=== PATIENT | female | born 1945 | race Caucasian/White ===

== ENCOUNTER → 2018-01-28 | Outpatient (CLI) | payer MEDICARE | END | disposition home or self-care (01) | LOC: CFH 09:07 | PROVIDERS: ATTEND Internal Medicine | DX: R06.02 Shortness of breath (principal); R07.89 Other chest pain | CPT/HCPCS: 71046 ==

== ENCOUNTER → 2018-08-01 | Outpatient (CLI) | payer MEDICARE | END | disposition home or self-care (01) | LOC: CFH 11:14 | PROVIDERS: ATTEND Internal Medicine | DX: Z12.31 Encounter for screening mammogram for malignant neoplasm of breast (principal) | CPT/HCPCS: 77063; 77067 ==

== ENCOUNTER → 2019-02-18 | Outpatient (CLI) | payer MEDICARE | END | disposition home or self-care (01) | LOC: CFH 15:39 | PROVIDERS: ATTEND Internal Medicine | DX: R09.89 Other specified symptoms and signs involving the circulatory and respiratory systems (principal); R55 Syncope and collapse | CPT/HCPCS: 70450 ==

== ENCOUNTER → 2019-04-16 | Outpatient (CLI) | payer MEDICARE | END | disposition home or self-care (01) | LOC: CVU 14:27 | PROVIDERS: ATTEND Registered Nurse | DX: I65.22 Occlusion and stenosis of left carotid artery (principal); E78.5 Hyperlipidemia, unspecified | CPT/HCPCS: 93880 ==

== ENCOUNTER 2019-06-01 09:37 | Day surgery (SDC) | payer MEDICARE ==
[~2019-06-01] VITALS: Ht 149.9 cm; Wt 62.0 kg
[2019-06-01] MEDS ORDERED: SODIUM CHLORIDE 0.9% 1,000 ML IV SCH ×2 (10:17→12:43)
[2019-06-01] MEDS ORDERED: LEVO75TA5 PO (10:41)
[2019-06-01] MEDS ORDERED: VIT1CAPS16 PO (10:41)
[2019-06-01] MEDS ORDERED: CHOL2000 PO (10:41)
[2019-06-01] MEDS ORDERED: ATOR10TA9 PO (10:41)
[2019-06-01] MEDS ORDERED: B CO1TAB14 PO (10:41)
[2019-06-01 11:04] LABS: MEAN CORPUSCULAR HEMOGLOBIN 30.8 pg (27.0-34.8); MEAN CORPUSCULAR HGB CONC 32.9 g/dL (32.4-35.8); MEAN CORPUSCULAR VOLUME 93.6 fL (80-100); MEAN PLATELET VOLUME 7.4 fL (7.4-10.4); PLATELET COUNT 151 x10^3/uL (130-400); RED BLOOD COUNT 4.43 x10^6/uL (3.82-5.3); RED CELL DISTRIBUTION WIDTH 14.4 % (9.6-15.2)
[2019-06-01 11:14] LABS: ANION GAP 5 mmol/L (5-15); CALCIUM 8.7 mg/dL (8.5-10.1); CHLORIDE 110 mmol/L (98-107); CREATININE 0.79 mg/dL (0.55-1.02)
[2019-06-01 11:26] LABS: BASOPHILS # (AUTO) 0.02 x10^3/uL (0-0.1); BASOPHILS % (AUTO) 1 % (0-1); EOSINOPHILS # (AUTO) 0.09 x10^3/uL (0-0.4); EOSINOPHILS % (AUTO) 3 % (1-7); LYMPHOCYTES # (AUTO) 0.81 x10^3/uL (1-3.4); LYMPHOCYTES % (AUTO) 30 % (22-44); MD SCAN; MONOCYTES # (AUTO) 0.29 x10^3/uL (0.2-0.8); MONOCYTES % (AUTO) 11 % (2-9); NEUTROPHILS # (AUTO) 1.55 x10^3/uL (1.8-6.8); NEUTROPHILS % (AUTO) 56 % (42-75)
[2019-06-01] MEDS ORDERED: LIDOCAINE 1%, 20ML ONE (11:48)
[2019-06-01] MEDS ORDERED: MIDAZOLAM 1 MG/ML, 5ML ONE (11:48)
[2019-06-01] MEDS ORDERED: FENTANYL PF 250 MCG/5ML ONE (11:48)
[2019-06-01] MEDS ORDERED: VERAPAMIL 2.5 MG/ML, 2ML ONE (11:48)
[2019-06-01] MEDS ORDERED: HEPARIN 1,000 UNITS/ML, 10ML ONE (11:48)
== END 2019-06-01 13:53 | disposition home or self-care (01) ==
LOC: CACL 09:37
PROVIDERS: ATTEND Internal Medicine Cardiovascular Disease
DX: I25.10 Atherosclerotic heart disease of native coronary artery without angina pectoris (principal); I25.83 Coronary atherosclerosis due to lipid rich plaque; R55 Syncope and collapse; E78.2 Mixed hyperlipidemia; E03.9 Hypothyroidism, unspecified; Z79.890 Hormone replacement therapy; Z79.899 Other long term (current) drug therapy
CPT/HCPCS: 33285; 36415; 80048; 85025; 93458; 99156; 99157; C1764; C1769; C1894; J1644; J2250; J3010; Q9967

== ENCOUNTER 2019-08-24 14:32 | Outpatient (CLI) | payer MEDICARE ==
[~2019-08-24 14:32] MED LIST: ATOR10TA9 PO; B CO1TAB14 PO; CHOL2000 PO; LEVO75TA5 PO; VIT1CAPS16 PO
== END 2019-08-24 23:59 | disposition home or self-care (01) ==
LOC: CFH 14:32
PROVIDERS: ATTEND Internal Medicine
DX: Z12.31 Encounter for screening mammogram for malignant neoplasm of breast (principal)
CPT/HCPCS: 77067

== ENCOUNTER → 2019-10-22 | Outpatient (CLI) | payer MEDICARE | END | disposition home or self-care (01) | LOC: CFH 09:29 | PROVIDERS: ATTEND Internal Medicine | DX: M81.0 Age-related osteoporosis without current pathological fracture (principal); E03.9 Hypothyroidism, unspecified | CPT/HCPCS: 77080 ==

== ENCOUNTER → 2020-09-14 | Outpatient (CLI) | payer MEDICARE | END | disposition home or self-care (01) | LOC: CFH 07:16 | PROVIDERS: ATTEND Internal Medicine | DX: Z12.31 Encounter for screening mammogram for malignant neoplasm of breast (principal) | CPT/HCPCS: 77063; 77067 ==